=== PATIENT | female | born 1995 | race Caucasian/White ===

== ENCOUNTER → 2017-02-08 | Outpatient (CLI) | payer OTHER ==
--- NOTE | 2017-02-08 12:40 | US ---
EXAMINATION TYPE: US abdomen complete DATE OF EXAM: 02/08/2017 COMPARISON: NONE CLINICAL HISTORY: R10.816 Abd Pain,Epigastric R10.84. RUQ pain, N&V, post 4 months; patient st ated is NPO EXAM MEASUREMENTS: Liver Length: 16.7 cm Gallbladder Wall: contracted CBD: 0.4 cm Spleen: 11.4 cm Right Kidney: 11.8 x 5.2 x 4.0 cm Left Kidney: 11.0 x 5.4 x 4.2 cm Pancreas: wnl Liver: fatty liver and mildly heterogeneous Gallbladder: couple of stones in fundus with larger shadowing stone = 1.0 x 0.6 x 0.4cm in LLD and s upine positions; contracted gallbladder wall in fasting state Evidence for sonographic Underwood's sign: No CBD: wnl Spleen: wnl Right Kidney: wnl Left Kidney: wnl Upper IVC: wnl Abd Aorta: wnl IMPRESSION: 1 mild fatty hepatic infiltration. 2. Gallstones.
== END | disposition home or self-care (01) ==
LOC: RADUSWWP 10:27
PROVIDERS: ATTEND Family Medicine
DX: K76.0 Fatty (change of) liver, not elsewhere classified (principal); K80.20 Calculus of gallbladder without cholecystitis without obstruction
CPT/HCPCS: 76700

== ENCOUNTER 2017-03-02 08:28 | Day surgery (SDC) | payer OTHER ==
[2017-02-24 10:56] VITALS: BMI 25.8
[~2017-03-02 08:28] MED LIST: DEXAMETHASONE SOD PHOSPHATE 10 MG/ML 1 ML VIAL IV ONE; HYDROmorphone 1 MG/ML 1 ML SYRINGE IVP PRN; LACTATED RINGERS 1,000 ML IV SCH; LIDOCAINE 1% 20 ML VIAL (10MG/ML) FOR IV START INTRADERMA PRN; ONDANSETRON 4 MG/2 ML VIAL IVP ONE; SCOPOLAMINE 1.5MG/72HR PATCH TRANSDERM ONE; ceFAZolin 2 GM in SODIUM CHLORIDE 0.9% 100 ML IVPB ONE
[2017-03-02] MEDS ORDERED: LIDOCAINE 1% INJ 10MG/ML (20 ML MDV) ONE (10:31)
[2017-03-02] MEDS ORDERED: GLYCOPYRROLATE 0.2 MG/ML 2 ML VIAL ONE (10:31)
[2017-03-02] MEDS ORDERED: SUCCINYLCHOLINE CHLORIDE 100 MG/5 ML SYR IV ONE (10:31)
[2017-03-02] MEDS ORDERED: PROPOFOL 10 MG/ML 20 ML VIAL IV ONE (10:31)
[2017-03-02] MEDS ORDERED: HYDROmorphone (PF) 1 MG/ML ONE (10:31)
[2017-03-02] MEDS ORDERED: NEOSTIGMINE 1 MG/ML 10 ML VIAL ONE (10:31)
[2017-03-02] MEDS ORDERED: ROCURONIUM BROMIDE 10 MG/ML 10 ML VIAL IV ONE (10:31)
[2017-03-02] MEDS ORDERED: BUPIVACAIN-EPI 0.25%-1:200,000 30 ML VIAL SQ ONE (10:31)
[2017-03-02] MEDS ORDERED: fentaNYL (PF) 50 MCG/ML 2 ML AMP ONE (10:31)
[2017-03-02] MEDS ORDERED: MIDAZOLAM 2 MG/2 ML VIAL ONE (10:31)
[2017-03-02] MEDS ORDERED: LACTATED RINGERS 1,000 ML IV ONE ×2 (11:10→14:08)
[2017-03-02 12:52] VITALS: TEMP 97.9
[2017-03-02 13:44] VITALS: RESP 18
--- NOTE | 2017-03-02 14:01 | P.OP ---
Date of Procedure: 03/02/17 Preoperative Diagnosis: Symptomatic cholelithiasis Postoperative Diagnosis: Acute cholecystitis Procedure(s) Performed: laparoScopic cholecystectomy Implants: Anesthesia: ROMERO Surgeon: Carole Lipscomb Estimated Blood Loss (ml): 25 Pathology: other Condition: stable Disposition: PACU Indications for Procedure: Operative Findings: Inflamed gallbladder Heart tones large impacted with stones Twisted cystic duct that was twisted upon itself by around 270. Description of Procedure: The patient is a 21-year-old female who presented with epigastric and upper abdominal pain which localized in the right upper quadrant was tender with an ultrasound suggested cholelithiasis. Clinical diagnosis of chronic cholecystitis was made. The risks benefits and possible complications of the procedure were discussed in detail and informed consent was obtained. Patient was identified in the preop operating holding area questions were answered and she was taken back to the operating room where she was placed in the supine position. She was given general anesthesia with endotracheal intubation followed by the placement of an orogastric tube and an appropriate timeout was called the indication procedure ALLERGIES medications from her prophylaxis were all discussed. Abdomen is prepped and draped in the usual sterile surgical fashion supraumbilical region was infiltrated with quarter percent with local anesthesia and incision was made with 11 blade and Veress needle was introduced and abdomen was insufflated to 15 mmHg. Once that was done a 10 mm epigastric port and two 5 mm right upper quadrant ports were placed.the gallbladder was retracted cephalad and superiorly.The fundus was retracted. There was significant amount of inflammation the gallbladder itself. Cystic duct and cystic artery as well as the callus trying a were not clear at all. Therefore the left and right lateral peritoneal attachments to the liver were taken down more so on the right lateral side. In doing so brought the gallbladder up a bit longer before dissection in the suspected callus triangle were meticulous dissection was done with the help of blunt dissection sharp dissection and electrocautery first to identify the cystic cystic artery was clipped proximally and distally and transected sharply with the help of electrocautery. Further dissection was done so as to dissect the fundus of the gallbladder off the gallbladder. Exposing the hepatic parenchyma. However there was significant amount of inflammatory adhesions posteriorly as well as twisting of the cystic duct. The cystic duct to the infundibulum transition was difficult to identify due to the severe inflammatory changes. Prolonged meticulous dissection and meticulous technique to obtain a critical view was done so that the infundibulum impacted with stones was untwisted allowing clear visualization of the cystic duct going into the common bile duct. Once that was done then the cystic duct was clipped proximally to distally and transected sharply with the help of scissors. Remaining part of the gallbladder was taken off the liver with Electrocautery. Hemostasis was secured with Electrocautery. The epigastric 12 mm port was removed skin incision was increased with the help of electrocautery as well as scalpel. This was done because the gallbladder wasn't significantly larger in size distended and packed with stones. It was then brought out through the epigastric port site. Once that was done and her PVR was done and all bleeding was controlled hemostasis secured abdomen was thoroughly sucked dry. At this time the procedure was completed the patient was turned off and all ports were removed. The epigastric incision site over that had to be increased both in terms of the muscles of the skin was closed in layers. The muscular layer was closed with running 0 Vicryl. Skin was closed with 4-0 Monocryl. The other port sites closed with 4-0 Monocryl. Approximately 15 mL of local anesthetic was applied into the epigastric port site. This tolerated procedure well there were no complications she was extubated and taken to recovery room in stable condition after removal of the orogastric tube. Plan - Discharge Summary New Discharge Prescriptions: New HYDROcodone/APAP 5-325MG [[place] 5-325] 1 tab PO Q4HR PRN #25 tab PRN Reason: Pain No Action Ciprofloxacin HCl [Cipro] 500 mg PO Q12HR Sertraline [Zoloft] 50 mg PO DAILY HYDROcodone/APAP 5-325MG [[place] 5-325] 1 tab PO Q6HR PRN PRN Reason: Pain Pnv,Calcium 72/Iron/Folic Acid [ Plus Tablet] 1 each PO DAILY Omeprazole 20 mg PO DAILY Discharge Medication List Ciprofloxacin HCl [Cipro] 500 mg PO Q12HR 02/24/17 [History] HYDROcodone/APAP 5-325MG [[place] 5-325] 1 tab PO Q6HR PRN 02/24/17 [History] Omeprazole 20 mg PO DAILY 02/24/17 [History] Pnv,Calcium 72/Iron/Folic Acid [ Plus Tablet] 1 each PO DAILY 02/24/17 [ History] Sertraline [Zoloft] 50 mg PO DAILY 02/24/17 [History] HYDROcodone/APAP 5-325MG [[place] 5-325] 1 tab PO Q4HR PRN #25 tab 03/02/17 [Rx] Follow up Appointment(s)/Referral(s): Carole Lipscomb MD [STAFF PHYSICIAN] - 10 Days Patient Instructions/Handouts: *Surgery [facility] - Laparoscopic Cholecystectomy Discharge Instructions, *Surgery [facility] - (Anesthesia) Discharge Instructions Outpatient Surgery Activity/Diet/Wound Care/Special Instructions: Regular diet Incentive spiromtery. 10 puff /1 h for 1 week Shower in 24 hours Ambulate as tolerated No driving or heavy machinery till pain free off of the pain meds for 48 hours No heavy lifting more than 20 lbs for 3 weeks. Discharge Disposition: HOME SELF-CARE
[2017-03-02 14:58] VITALS: BP 146/66; PULSE 51
== END 2017-03-02 15:16 | disposition home or self-care (01) ==
LOC: OR 08:28
PROVIDERS: ATTEND Surgery
DX: K80.12 Calculus of gallbladder with acute and chronic cholecystitis without obstruction (principal); K21.9 Gastro-esophageal reflux disease without esophagitis; F17.200 Nicotine dependence, unspecified, uncomplicated; Z79.891 Long term (current) use of opiate analgesic; Z79.899 Other long term (current) drug therapy
CPT/HCPCS: 47562; 81025; 88304; J2250; J1100; J2710; J0690; J2405; J2001; J3010; J1170; J0330; J2704

== ENCOUNTER 2017-09-18 17:38 | Emergency (ER) | payer OTHER ==
[2017-09-18 19:15] VITALS: RESP 20
--- NOTE | 2017-09-18 20:14 | ED ---
General Adult HPI - General Chief complaint: Back Pain/Injury Stated complaint: Back pain Time Seen by Provider: 09/18/17 19:44 Source: patient, family, RN notes reviewed Mode of arrival: ambulatory Limitations: no limitations - History of Present Illness Initial comments: 22-year-old female presents to the emergency department with a chief complaint of flareup of her back pain. Suffering from back pain for the last years. She was told that she may have broken her back but she never been to this. She states she continues to have back pain worse when she picked up her daughter. She denies any numbness or tingling down the legs. She denies any loss by bladder function. She denies any saddle anesthesia. She states she did have outpatient x-rays today. She states she's wanted that she can get to help with the pain into she should be following up with. She was unable to get MRI of the back. She states that having any other time. Denies any fever chills with this. Patient denies any recent fever, chills, shortness of breath, chest pain, abdominal pain, nausea vomiting, numbness or tingling, dysuria or hematuria, constipation or diarrhea, headaches or visual changes, or any other current symptoms. - Related Data Home Medications Medication Instructions Recorded Confirmed Escitalopram [Lexapro] 10 mg PO DAILY 09/18/17 09/18/17 hydrOXYzine PAMOATE [Vistaril] 50 mg PO DAILY PRN 09/18/17 09/18/17 Previous Rx's Medication Instructions Recorded Ibuprofen [Motrin] 600 mg PO Q6HR PRN #20 tab 09/18/17 Allergies Allergy/AdvReac Type Severity Reaction Status Date / Time No Known Allergies Allergy Verified 09/18/17 20:06 Review of Systems ROS Statement: Those systems with pertinent positive or pertinent negative responses have been documented in the HPI. ROS Other: All systems not noted in ROS Statement are negative. Past Medical History Past Medical History: GERD/Reflux Additional Past Medical History / Comment(s): CURRENTLY ON ANTIBIOTICS FOR RECENT UTI. GALLBALDDER DISORDER History of Any Multi-Drug Resistant Organisms: None Reported Past Surgical History: Section Past Anesthesia/Blood Transfusion Reactions: No Reported Reaction Past Psychological History: Anxiety, Depression Smoking Status: Current every day smoker Past Alcohol Use History: None Reported Past Drug Use History: None Reported - Past Family History Mother History Unknown: Yes Additional Family Medical History / Comment(s): PT ADOPTED BIOLOGICAL FAMILY HHX UNKNOWN General Exam Limitations: no limitations General appearance: alert, in no apparent distress Respiratory exam: Present: normal lung sounds bilaterally. Absent: respiratory distress, wheezes, rales, rhonchi, stridor Cardiovascular Exam: Present: regular rate, normal rhythm, normal heart sounds. Absent: systolic murmur, diastolic murmur, rubs, gallop, clicks Extremities exam: Present: normal inspection, full ROM, normal capillary refill. Absent: tenderness, pedal edema, joint swelling, calf tenderness Back exam: Present: normal inspection, full ROM. Absent: tenderness, CVA tenderness (R), CVA tenderness (L), paraspinal tenderness, vertebral tenderness , rash noted Neurological exam: Present: alert, oriented X3 Psychiatric exam: Present: normal affect, normal mood Skin exam: Present: warm, dry, intact, normal color. Absent: rash Course Vital Signs 09/18/17 19:12 Temperature 98.3 F Pulse Rate 67 Respiratory 20 Rate Blood Pressure 140/91 O2 Sat by Pulse 99 Oximetry Medical Decision Making - Medical Decision Making 22-year-old female presents emergency 5 chief complaint of back pain. This time patient x-rays are reviewed. This time we discussion follow-up with back specialist. We did give her Dr. Maxwell's information back specialist in [facility] as well as on-call. Dr. Clay. We did discuss Motrin Tylenol for pain. We did discuss return parameters and follow-up and all questions. Patient family stated the Bob management this plan. All questions have been answered. They will be discharged. - Radiology Data Radiology results: report reviewed, image reviewed Disposition Clinical Impression: Chronic back pain Disposition: HOME SELF-CARE Condition: Stable Instructions: Chronic Back Pain (ED) Additional Instructions: Please use medication as discussed. Please follow up with family doctor if symptoms have not improved over the next two days. Please return to the emergency room if your symptoms increase or worsen or for any other concerns. Prescriptions: Ibuprofen [Motrin] 600 mg PO Q6HR PRN #20 tab PRN Reason: Pain Referrals: Jyoti Edge MD [Primary Care Provider] - 1-2 days Time of Disposition: 20:13
[2017-09-18 20:48] VITALS: BP 130/67; PULSE 70; TEMP 98.1
== END 2017-09-18 20:45 | disposition home or self-care (01) ==
LOC: EC 17:38
DX: G89.29 Other chronic pain (principal); M54.9 Dorsalgia, unspecified; F17.200 Nicotine dependence, unspecified, uncomplicated; F32.9 Major depressive disorder, single episode, unspecified; F41.9 Anxiety disorder, unspecified; Z79.899 Other long term (current) drug therapy
CPT/HCPCS: 72100; 81025; 99284

== ENCOUNTER → 2017-09-18 | Outpatient (CLI) | payer OTHER ==
--- NOTE | 2017-09-18 20:02 | XR ---
EXAM TYPE: LUMBAR SPINE X RAY SERIES COMPARISON: NONE HISTORY: Pain TECHNIQUE: 3 views are submitted. FINDINGS: Alignment is anatomic. The pedicles are intact. The transverse processes are intact. There is no spondylolisthesis. Surgical clips in the right upper quadrant are noted. Spina bifida occulta lumbos acral junction. Mild facet arthropathy L5-S1. IMPRESSION: 1. Mild facet arthropathy L5-S1 with spina bifida occulta at the lumbosacral junction. Correlate with MRI as clinically warranted..
== END | disposition home or self-care (01) ==
LOC: RADXRMAIN 17:23
PROVIDERS: ATTEND Nurse Practitioner
DX: M46.87 Other specified inflammatory spondylopathies, lumbosacral region (principal); Q76.0 Spina bifida occulta
CPT/HCPCS: 72100

== ENCOUNTER → 2017-10-04 | Outpatient (CLI) | payer OTHER ==
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
== END ==
LOC: RADMRIMAIN 21:26
PROVIDERS: ATTEND Nurse Practitioner
DX: Q76.0 Spina bifida occulta (principal)
CPT/HCPCS: 72158; A9581

== ENCOUNTER 2025-02-19 15:17 | Inpatient (IN) | payer OTHER ==
--- NOTE | 2025-02-19 16:03 | ED ---
Recheck HPI - General Chief Complaint: Abdominal Pain Stated Complaint: Abd pain/Stomach ulcer Time Seen by Provider: 02/19/25 15:29 Source: patient, EMS, RN notes reviewed, old records reviewed Mode of arrival: EMS - History of Present Illness Initial Comments: This is a 29 female excepted from abdominal pain, ulcer gastric ulcer recent gastritis intraperitoneal free air transfer dose from outside facility Complaint: abnormal lab, needs IV antibiotics, other (Patient needing surgical consultation) -: days(s) Returns Today for: Called Because of Abnormal Lab/Test, needs IV antibiotics, persistent/worsening pain related to initial visit Symptoms Since Prior Visit: worsening pain Context: called for abnormal lab result Associated Symptoms: none, abdominal pain Treatments Prior to Arrival: IV/IO, Given Antibiotics on, Given Pain Meds on - Related Data Home Medications Medication Instructions Recorded Confirmed Amitriptyline HCl [Elavil] 50 mg PO HS 02/19/25 02/19/25 Cetirizine HCl 10 mg PO DAILY 02/19/25 02/19/25 Dextroamphetamine/Amphetamine 15 mg PO DAILY 02/19/25 02/19/25 [Adderall Xr 15 mg Capsule] Meloxicam [Mobic] 15 mg PO DAILY 02/19/25 02/19/25 Metoclopramide [Reglan] 10 mg PO TID-W/MEALS PRN 02/19/25 02/19/25 Ondansetron Odt [Zofran Odt] 4 mg PO Q8HR PRN 02/19/25 02/19/25 Pantoprazole Sodium [Protonix] 20 mg PO DAILY 02/19/25 02/19/25 hydrOXYzine HCL [Atarax] 25 mg PO BID PRN 02/19/25 02/19/25 Previous Rx's Medication Instructions Recorded Ibuprofen [Motrin] 600 mg PO Q6HR PRN #20 tab 09/18/17 Allergies Allergy/AdvReac Type Severity Reaction Status Date / Time No Known Allergies Allergy Verified 02/19/25 16:03 Review of Systems ROS Statement: Those systems with pertinent positive or pertinent negative responses have been documented in the HPI. ROS Other: All systems not noted in ROS Statement are negative. Past Medical History Past Medical History: GERD/Reflux Additional Past Medical History / Comment(s): chronic back pain and "period issues" History of Any Multi-Drug Resistant Organisms: None Reported Past Surgical History: Section, Cholecystectomy Past Anesthesia/Blood Transfusion Reactions: No Reported Reaction Past Psychological History: Anxiety, Depression Smoking Status: Vaper Past Alcohol Use History: Rare Past Drug Use History: Marijuana - Past Family History Mother History Unknown: Yes Additional Family Medical History / Comment(s): PT ADOPTED BIOLOGICAL FAMILY HHX UNKNOWN General Exam General appearance: alert, in no apparent distress Head exam: Present: atraumatic, normocephalic, normal inspection Eye exam: Present: normal appearance, PERRL, EOMI. Absent: scleral icterus, conjunctival injection, periorbital swelling ENT exam: Present: normal exam, mucous membranes moist Neck exam: Present: normal inspection. Absent: tenderness, meningismus, lymphadenopathy Respiratory exam: Present: normal lung sounds bilaterally. Absent: respiratory distress, wheezes, rales, rhonchi, stridor Cardiovascular Exam: Present: regular rate, normal rhythm, normal heart sounds. Absent: systolic murmur, diastolic murmur, rubs, gallop, clicks GI/Abdominal exam: Present: soft, normal bowel sounds. Absent: distended, tenderness, guarding, rebound, rigid Extremities exam: Present: normal inspection, full ROM, normal capillary refill. Absent: tenderness, pedal edema, joint swelling, calf tenderness Back exam: Present: normal inspection Neurological exam: Present: alert, oriented X3, CN II-XII intact Psychiatric exam: Present: normal affect, normal mood Skin exam: Present: warm, dry, intact, normal color. Absent: rash Course Vital Signs 02/19/25 02/19/25 02/19/25 15:22 16:37 16:43 Temperature 97.8 F 96.5 F L Pulse Rate 76 68 Pulse Rate [ 78 Pulse Oximetery ] Respiratory 16 16 16 Rate Blood Pressure 117/65 109/68 Blood Pressure 110/64 [Left Arm] O2 Sat by Pulse 100 99 99 Oximetry - Reevaluation(s) Reevaluation #1: 02/19/25 16:05 Medical records reviewed Transfer paperwork CT abdomen pelvis is gastritis with interval development of large volume free air in the abdomen and pelvis suspected perforated hollow viscus concern for perforated ulcer CMP is within normal limits CBC hemoglobin 13.7 white blood cell count 13.8 Reevaluation #2: No significant or active bleeding noted here in the ER Reevaluation #3: Patient vital signs are stable no lowering of blood pressure no increasing of heart rate pain is controlled Reevaluation #4: Was pt. sent in by a medical professional or institution (AYANA Ibrahim, [employer] 8 TEACHER, urgent care, hospital, or [facility]...) When possible be specific @ -no Did you speak to anyone other than the patient for history (EMS, parent, family, police, friend...)? What history was obtained from this source @ -no Did you review nursing and triage notes (agree or disagree)? Why? @ -agree Are old charts reviewed (outside hosp., previous admission, EMS record, old EKG, old radiological studies, urgent care reports/EKG's, [facility] records)? Report findings @ -yes Differential Diagnosis (chest pain, altered mental status, abdominal pain women, abdominal pain men, vaginal bleeding, weakness, fever, dyspnea, syncope, headache, dizziness, GI bleed, back pain, seizure, CVA, palpatations, mental health, musculoskeletal)? @ -prior EKG interpreted by me (3pts min.). @ -no X-rays interpreted by me (1pt min.). @ -no CT interpreted by me (1pt min.). @ -no U/S interpreted by me (1pt. min.). @ -no What testing was considered but not performed or refused? (CT, X-rays, U/S, labs)? Why? @ -none What meds were considered but not given or refused? Why? @ -none Did you discuss the management of the patient with other professionals (professionals i.e. AYANA Ibrahim, [employer] TEACHER, lab, RT, psych nurse, social media director, clutch inspector, teacher, commercial account officer, geriatric case manager)? Give summary @ -no Was smoking cessation discussed for >3mins.? @ -no Was critical care preformed (if so, how long)? @ -yes31 Were there social determinants of health that impacted care today? How? (Homelessness, low income, unemployed, alcoholism, drug addiction, transp ortation, low edu. Level, literacy, decrease access to med. care, [facility], rehab)? @ -none Was there de-escalation of care discussed even if they declined (Discuss DNR or withdrawal of care, Hospice)? DNR status @ -no What co-morbidities impacted this encounter? (DM, HTN, Smoking, COPD, CAD, Cancer, CVA, ARF, Chemo, Hep., AIDS, mental health diagnosis, sleep apnea, morbid obesity)? @ -none Was patient admitted / discharged? Hospital course, mention meds given and route, prescriptions, significant lab abnormalities, going to OR and other pertinent info. @ -29 female transferred for ulcer rupture with significant bleeding, patient will be admitted for surgical treatment Undiagnosed new problem with uncertain prognosis? @ -no Drug Therapy requiring intensive monitoring for toxicity (Heparin, Nitro, Insulin, Cardizem)? @ -no Were any procedures done? @ -no Diagnosis/symptom? @ -Ruptured ulcer gastritis intraperitoneal free air Acute, or Chronic, or Acute on Chronic? @ -Acute Uncomplicated (without systemic symptoms) or Complicated (systemic symptoms)? @ -Complicated Side effects of treatment? @ -no Exacerbation, Progression, or Severe Exacerbation? @ -exacerbation Poses a threat to life or bodily function? How? (Chest pain, [place], [place], pneumonia, PE, COPD, DKA, ARF, appy, cholecystitis, CVA, Diverticulitis, Homicidal, Suicidal, threat to staff... and all critical care pts) @ -yes acute abdomen Reevaluation #5: Differential Abdominal Pain Women: Appendicitis, Cholecystitis, diverticulosis, ischemic bowel, pancreatitis, hepatitis, UTI, gastroenteritis, AAA, incarcerated hernia, bowel obstruction, constipation, inflammatory bowel, hepatitis, peptic ulcer disease, splenic infarction, perforated viscus, vulvitis, ovarian torsion, PID, kidney stone, placenta abruption, this is not meant to be an all-inclusive list Medical Decision Making - Medical Decision Making 29 female to ER with bleeding ulcer, patient will be admitted for surgical treatment - Lab Data Result diagrams: 02/23/25 03:07 02/23/25 03:07 Lab Results 02/19/25 02/19/25 02/19/25 Range/Units 16:25 16:25 16:25 WBC 14.01 H (4.50-10.00) 10*3/uL RBC 4.65 (4.10-5.20) 10*6/uL Hgb 13.7 (12.0-15.0) g/dL Hct 38.6 (37.2-46.3) % MCV 83.0 (80.0-97.0) fL MCH 29.5 (27.0-32.0) pg MCHC 35.5 (32.0-37.0) g/dL Plt Count 262 (140-440) 10*3/uL MPV 9.6 (9.5-12.2) fL Immature Gran % (Auto) 0.2 % Neutrophils % (Manual) 80 % Band Neuts % (Manual) 8 % Lymphocytes % (Manual) 6 % Monocytes % (Manual) 6 % Immature Gran # 0.03 (0.00-0.04) 10*3/uL Neutrophils # (Manual) 12.32 H (1.3-7.7) k/uL Lymphocytes # (Manual) 0.84 L (1.0-4.8) k/uL Monocytes # (Manual) 0.84 (0-1.0) k/uL Nucleated RBCs 0 (0-0) /100 WBC Manual Slide Review Performed Anisocytosis (manual) Present PT 17.4 H (10.0-12.5) sec INR 1.7 H (<1.2) APTT 27.2 (22.0-30.0) sec Sodium 141 (137-145) mmol/L Potassium 3.3 L (3.5-5.1) mmol/L Chloride 103 (98-107) mmol/L Carbon Dioxide 25 (22-30) mmol/L Anion Gap 13 mmol/L BUN 11 (7-17) mg/dL Creatinine 0.44 L (0.52-1.04) mg/dL Est GFR (CKD-EPI)AfAm >90 (>60 ml/min/1.73 sqM) Est GFR (CKD-EPI)NonAf >90 (>60 ml/min/1.73 sqM) Glucose 115 H (74-99) mg/dL Plasma Lactic Acid Hung (0.7-2.0) mmol/L Calcium 8.9 (8.4-10.2) mg/dL Magnesium 1.3 L (1.6-2.3) mg/dL Total Bilirubin 2.5 H (0.2-1.3) mg/dL AST 53 H (14-36) U/L ALT 79 H (4-34) U/L Alkaline Phosphatase 73 (38-126) U/L Ammonia (<30) umol/L Troponin I (0.000-0.034) ng/mL Total Protein 6.8 (6.3-8.2) g/dL Albumin 3.9 (3.5-5.0) g/dL Lipase 62 (23-300) U/L HCG, Qual Not Detected Blood Type Blood Type Confirm Blood Type Recheck Bld Type Recheck Status Antibody Screen Spec Expiration Date 02/19/25 02/19/25 02/19/25 Range/Units 16:25 16:25 16:25 WBC (4.50-10.00) 10*3/uL RBC (4.10-5.20) 10*6/uL Hgb (12.0-15.0) g/dL Hct (37.2-46.3) % MCV (80.0-97.0) fL MCH (27.0-32.0) pg MCHC (32.0-37.0) g/dL Plt Count (140-440) 10*3/uL MPV (9.5-12.2) fL Immature Gran % (Auto) % Neutrophils % (Manual) % Band Neuts % (Manual) % Lymphocytes % (Manual) % Monocytes % (Manual) % Immature Gran # (0.00-0.04) 10*3/uL Neutrophils # (Manual) (1.3-7.7) k/uL Lymphocytes # (Manual) (1.0-4.8) k/uL Monocytes # (Manual) (0-1.0) k/uL Nucleated RBCs (0-0) /100 WBC Manual Slide Review Anisocytosis (manual) PT (10.0-12.5) sec INR (<1.2) APTT (22.0-30.0) sec Sodium (137-145) mmol/L Potassium (3.5-5.1) mmol/L Chloride (98-107) mmol/L Carbon Dioxide (22-30) mmol/L Anion Gap mmol/L BUN (7-17) mg/dL Creatinine (0.52-1.04) mg/dL Est GFR (CKD-EPI)AfAm (>60 ml/min/1.73 sqM) Est GFR (CKD-EPI)NonAf (>60 ml/min/1.73 sqM) Glucose (74-99) mg/dL Plasma Lactic Acid Hung 1.9 (0.7-2.0) mmol/L Calcium (8.4-10.2) mg/dL Magnesium (1.6-2.3) mg/dL Total Bilirubin (0.2-1.3) mg/dL AST (14-36) U/L ALT (4-34) U/L Alkaline Phosphatase (38-126) U/L Ammonia 9 (<30) umol/L Troponin I <0.012 (0.000-0.034) ng/mL Total Protein (6.3-8.2) g/dL Albumin (3.5-5.0) g/dL Lipase (23-300) U/L HCG, Qual Blood Type O Positive Blood Type Confirm Blood Type Recheck No Previous Record Bld Type Recheck Status CABO Indicated Antibody Screen NEGATIVE Spec Expiration Date 02/22/2025 - 232402/19/25 Range/Units 16:30 WBC (4.50-10.00) 10*3/uL RBC (4.10-5.20) 10*6/uL Hgb (12.0-15.0) g/dL Hct (37.2-46.3) % MCV (80.0-97.0) fL MCH (27.0-32.0) pg MCHC (32.0-37.0) g/dL Plt Count (140-440) 10*3/uL MPV (9.5-12.2) fL Immature Gran % (Auto) % Neutrophils % (Manual) % Band Neuts % (Manual) % Lymphocytes % (Manual) % Monocytes % (Manual) % Immature Gran # (0.00-0.04) 10*3/uL Neutrophils # (Manual) (1.3-7.7) k/uL Lymphocytes # (Manual) (1.0-4.8) k/uL Monocytes # (Manual) (0-1.0) k/uL Nucleated RBCs (0-0) /100 WBC Manual Slide Review Anisocytosis (manual) PT (10.0-12.5) sec INR (<1.2) APTT (22.0-30.0) sec Sodium (137-145) mmol/L Potassium (3.5-5.1) mmol/L Chloride (98-107) mmol/L Carbon Dioxide (22-30) mmol/L Anion Gap mmol/L BUN (7-17) mg/dL Creatinine (0.52-1.04) mg/dL Est GFR (CKD-EPI)AfAm (>60 ml/min/1.73 sqM) Est GFR (CKD-EPI)NonAf (>60 ml/min/1.73 sqM) Glucose (74-99) mg/dL Plasma Lactic Acid Hung (0.7-2.0) mmol/L Calcium (8.4-10.2) mg/dL Magnesium (1.6-2.3) mg/dL Total Bilirubin (0.2-1.3) mg/dL AST (14-36) U/L ALT (4-34) U/L Alkaline Phosphatase (38-126) U/L Ammonia (<30) umol/L Troponin I (0.000-0.034) ng/mL Total Protein (6.3-8.2) g/dL Albumin (3.5-5.0) g/dL Lipase (23-300) U/L HCG, Qual Blood Type Blood Type Confirm O Positive Blood Type Recheck Bld Type Recheck Status Antibody Screen Spec Expiration Date Critical Care Time Critical Care Time: Yes Total Critical Care Time: 31 Disposition Clinical Impression: Abdominal pain, Acute abdomen, Bowel perforation, Gastritis, Ulcer Disposition: ADMITTED IP TO THIS [facility] Condition: Serious Is patient prescribed a controlled substance at d/c from ED?: No Time of Disposition: 16:30
[2025-02-19] MEDS: SODIUM CHLORIDE 0.9% 1,000 ML IV STA (16:19)
[2025-02-19] MEDS: HYDROmorphone 1 MG/ML 1 ML SYRINGE IVP STA (16:27)
[2025-02-19] MEDS: PANTOPRAZOLE 40 MG/10 ML VIAL IVP STA (16:29)
[2025-02-19] MEDS: ONDANSETRON 4 MG/2 ML VIAL IVP STA (16:30)
[2025-02-19] MEDS: PIPERACILLIN-TAZOBACTAM 3.375 GM in SODIUM CHLORIDE 0.9% 100 ML IVPB SCH (16:34)
[2025-02-19] MEDS ORDERED: NALOXONE 0.4 MG/ML 1 ML VIAL IV PRN (16:46)
[2025-02-19] MEDS ORDERED: ONDANSETRON 4 MG/2 ML VIAL IVP PRN (16:46)
[2025-02-19 16:49] LABS: HCG,Qualitative Serum Not Detected
[2025-02-19 16:51] LABS: Lactic Acid, Venous 1.9 mmol/L (0.7-2.0)
[2025-02-19 16:52] LABS: ALT 79 U/L (4-34); AST 53 U/L (14-36); African American GFR (CKD) >90 (>60 ml/min/1.73 sqM); Albumin 3.9 g/dL (3.5-5.0); Alkaline Phosphatase 73 U/L (38-126); Anion Gap 13 mmol/L; Blood Urea Nitrogen 11 mg/dL (7-17); Calcium 8.9 mg/dL (8.4-10.2); Carbon Dioxide 25 mmol/L (22-30); Chloride 103 mmol/L (98-107); Glucose 115 mg/dL (74-99); Lipase 62 U/L (23-300); Magnesium 1.3 mg/dL (1.6-2.3); Non-African American GFR(CKD) >90 (>60 ml/min/1.73 sqM); Potassium 3.3 mmol/L (3.5-5.1); Sodium 141 mmol/L (137-145); Total Protein 6.8 g/dL (6.3-8.2)
[2025-02-19] MEDS: IV FLUID CONTINUATION 1,000 ML IV ONE (16:52)
[2025-02-19 16:54] LABS: HCT 38.6 % (37.2-46.3); HGB 13.7 g/dL (12.0-15.0); MCH 29.5 pg (27.0-32.0); MCHC 35.5 g/dL (32.0-37.0); MCV 83.0 fL (80.0-97.0); Platelet Count 262 10*3/uL (140-440); RBC 4.65 10*6/uL (4.10-5.20); RDW 12.6 % (11.5-14.5); WBC 14.01 10*3/uL (4.50-10.00)
[2025-02-19] MEDS: HEPARIN SODIUM,PORCINE 5,000 UNIT/ML 1 ML VIAL SQ ONE (16:59)
[2025-02-19] MEDS: DEXAMETHASONE SOD PHOSPHATE 4 MG/ML 1 ML VIAL IVP ONE (16:59)
[2025-02-19 17:00] LABS: INR 1.7 (<1.2); Partial Thromboplastin Time 27.2 sec (22.0-30.0); Prothrombin Time 17.4 sec (10.0-12.5)
[2025-02-19] MEDS ORDERED: MIDAZOLAM 2 MG/2 ML VIAL ONE (17:00)
[2025-02-19] MEDS ORDERED: PHENYLEPHRINE-0.9% NACL SYG 1,000 MCG/10 ML SYRINGE ONE (17:00)
[2025-02-19] MEDS ORDERED: SUCCINYLCHOLINE CHLORIDE 200 MG/10 ML VIAL IV ONE (17:00)
[2025-02-19] MEDS ORDERED: NEOSTIGMINE 1 MG/ML 10 ML VIAL ONE (17:00)
[2025-02-19] MEDS ORDERED: GLYCOPYRROLATE 0.2 MG/ML 2 ML VIAL ONE (17:00)
[2025-02-19] MEDS ORDERED: ROCURONIUM 10 MG/ML (5 ML VIAL) IV ONE (17:00)
[2025-02-19] MEDS ORDERED: KETAMINE HCL IN 0.9 % NACL 50 MG/5 ML SYRINGE ONE (17:00)
[2025-02-19] MEDS ORDERED: fentaNYL (PF) 50 MCG/ML 2 ML AMP ONE (17:00)
[2025-02-19] MEDS ORDERED: DEXMEDETOMIDINE/0.9% NACL(PMX) 400 MCG/100 ML IV ONE (17:00)
[2025-02-19] MEDS ORDERED: PROPOFOL 10 MG/ML 20 ML VIAL IV ONE (17:00)
--- NOTE | 2025-02-19 17:08 | P.GSHP ---
History of Present Illness H&P Date: 02/19/25 Chief Complaint: Pneumoperitoneum 29-year-old female has had intermittent epigastric abdominal pain for the last few years. Usually last for a day or so. Starting last Monday into began experiencing upper abdominal pain that did not go away this time. Became progressively more severe. Went to the ER on Monday. Limited workup did not reveal any abnormalities. She was sent home with analgesics and antiemetics. Went back to the ER on Monday. CAT scan was then performed showing some thickening of the gastric wall. Gastritis was suspected. Patient was having some dark-colored stools at the time. Denied hematemesis. Did have some vomiting. Again was discharged home. Patient says since then the pain became progressively more severe to the point that she could not sleep. Patient was weak today. She was taken back to the hospital underwent repeat lab work and CAT scan showing large volume pneumoperitoneum. Some possible fistulous communication to the gastric antrum was suspected. Was transferred here for surgical intervention. Was seen here in preop this afternoon. Patient is able to ambulate with mild distress. Denies shortness of breath. Does feel weak. White blood cell count 13, hemoglobin 13, lactic acid normal. Urine hCG negative. No history of previous EGD. Patient does take meloxicam for her perimenopausal symptoms. - Review of Systems Comment: The patient denies any acute changes in vision or hearing, no dysphagia or odynophagia, no chest pain or shortness of breath, no dysuria or hematuria, no headache, no runny nose, no rectal bleeding, no unexplained weight loss Past Medical History Past Medical History: GERD/Reflux Additional Past Medical History / Comment(s): chronic back pain and "period issues" History of Any Multi-Drug Resistant Organisms: None Reported Past Surgical History: Section, Cholecystectomy Past Anesthesia/Blood Transfusion Reactions: No Reported Reaction Past Psychological History: Anxiety, Depression Smoking Status: Vaper Past Alcohol Use History: Rare Past Drug Use History: Marijuana - Past Family History Mother History Unknown: Yes Additional Family Medical History / Comment(s): PT ADOPTED BIOLOGICAL FAMILY HHX UNKNOWN Medications and Allergies Home Medications Medication Instructions Recorded Confirmed Type Ibuprofen [Motrin] 600 mg PO Q6HR PRN #20 tab 09/18/17 02/19/25 Rx Amitriptyline HCl [Elavil] 50 mg PO HS 02/19/25 02/19/25 History Cetirizine HCl 10 mg PO DAILY 02/19/25 02/19/25 History Dextroamphetamine/Amphetamine 15 mg PO DAILY 02/19/25 02/19/25 History [Adderall Xr 15 mg Capsule] Meloxicam [Mobic] 15 mg PO DAILY 02/19/25 02/19/25 History Metoclopramide [Reglan] 10 mg PO TID-W/MEALS PRN 02/19/25 02/19/25 History Ondansetron Odt [Zofran Odt] 4 mg PO Q8HR PRN 02/19/25 02/19/25 History Pantoprazole Sodium [Protonix] 20 mg PO DAILY 02/19/25 02/19/25 History hydrOXYzine HCL [Atarax] 25 mg PO BID PRN 02/19/25 02/19/25 History Allergies Allergy/AdvReac Type Severity Reaction Status Date / Time No Known Allergies Allergy Verified 02/19/25 16:03 Surgical - Exam Vital Signs Temp Pulse Resp BP Pulse Ox 97.8 F 76 16 117/65 100 02/19/25 15:22 02/19/25 15:22 02/19/25 15:22 02/19/25 15:22 02/19/25 15:22 Physical exam: General: Well-developed, well-nourished, appears slightly pale HEENT: Normocephalic, sclerae nonicteric Abdomen: Diffuse tenderness, mild distention Extremities: No edema Neuro: Alert and oriented Results - Labs 02/19/25 16:25 02/19/25 16:25 Abnormal Lab Results - Last 24 Hours (Table) 02/19/25 02/19/25 02/19/25 Range/Units 16:25 16:25 16:25 WBC 14.01 H (4.50-10.00) 10*3/uL PT 17.4 H (10.0-12.5) sec INR 1.7 H (<1.2) Potassium 3.3 L (3.5-5.1) mmol/L Creatinine 0.44 L (0.52-1.04) mg/dL Glucose 115 H (74-99) mg/dL Magnesium 1.3 L (1.6-2.3) mg/dL Total Bilirubin 2.5 H (0.2-1.3) mg/dL AST 53 H (14-36) U/L ALT 79 H (4-34) U/L Diabetes panel 02/19/25 Range/Units 16:25 Sodium 141 (137-145) mmol/L Potassium 3.3 L (3.5-5.1) mmol/L Chloride 103 (98-107) mmol/L Carbon Dioxide 25 (22-30) mmol/L BUN 11 (7-17) mg/dL Creatinine 0.44 L (0.52-1.04) mg/dL Glucose 115 H (74-99) mg/dL Calcium 8.9 (8.4-10.2) mg/dL AST 53 H (14-36) U/L ALT 79 H (4-34) U/L Alkaline Phosphatase 73 (38-126) U/L Total Protein 6.8 (6.3-8.2) g/dL Albumin 3.9 (3.5-5.0) g/dL Calcium panel 02/19/25 Range/Units 16:25 Calcium 8.9 (8.4-10.2) mg/dL Albumin 3.9 (3.5-5.0) g/dL Pituitary panel 02/19/25 Range/Units 16:25 Sodium 141 (137-145) mmol/L Potassium 3.3 L (3.5-5.1) mmol/L Chloride 103 (98-107) mmol/L Carbon Dioxide 25 (22-30) mmol/L BUN 11 (7-17) mg/dL Creatinine 0.44 L (0.52-1.04) mg/dL Glucose 115 H (74-99) mg/dL Calcium 8.9 (8.4-10.2) mg/dL Adrenal panel 02/19/25 Range/Units 16:25 Sodium 141 (137-145) mmol/L Potassium 3.3 L (3.5-5.1) mmol/L Chloride 103 (98-107) mmol/L Carbon Dioxide 25 (22-30) mmol/L BUN 11 (7-17) mg/dL Creatinine 0.44 L (0.52-1.04) mg/dL Glucose 115 H (74-99) mg/dL Calcium 8.9 (8.4-10.2) mg/dL Total Bilirubin 2.5 H (0.2-1.3) mg/dL AST 53 H (14-36) U/L ALT 79 H (4-34) U/L Alkaline Phosphatase 73 (38-126) U/L Total Protein 6.8 (6.3-8.2) g/dL Albumin 3.9 (3.5-5.0) g/dL Assessment and Plan (1) Bowel perforation Narrative/Plan: 29-year-old female with pneumoperitoneum. CAT scan reviewed. Source of perforation likely related to peptic ulcer disease. Clinical scenario reviewed in detail with the patient and her fianc. Patient is agreeable with surgical intervention. Will proceed with exploratory laparotomy, possible bowel resecti on, possible ostomy. Risks of bleeding, infection, abscess, reperforation, possible need for bowel resection, gastric resection, ostomy, hernia, sepsis. Patient understands and wishes to proceed. Current Visit: Yes Status: Acute Code(s): K63.1 - PERFORATION OF INTESTINE (NONTRAUMATIC) SNOMED Code(s): 02429391
[2025-02-19 17:24] LABS: Lymphocytes # (M) 0.84 k/uL (1.0-4.8); Monocytes # (M) 0.84 k/uL (0-1.0); Neutrophils # (M) 12.32 k/uL (1.3-7.7); Neutrophils % (M) 80 %; Total Cells Counted 100
[2025-02-19 17:26] LABS: Anisocytosis (M) Present
[2025-02-19] MEDS: LACTATED RINGERS 1,000 ML IV ONE (17:53)
--- NOTE | 2025-02-19 18:44 | P.OP ---
Date of Procedure: 02/19/25 Procedure(s) Performed: PREOPERATIVE DIAGNOSIS: Pneumoperitoneum POSTOPERATIVE DIAGNOSIS: Perforated gastric ulcer with peritonitis PROCEDURE: Exploratory laparotomy, suture repair perforated gastric ulcer with modified Bradley patch SURGEON: Alonzo EBL: 25 cc ANESTHESIA: General COMPLICATIONS: None OPERATIVE PROCEDURE: Patient placed in the operating table in the supine position. Preoperative nasogastric tube placed. Abdomen prepped and draped sterilely. Midline incision made supraumbilical. Initially the incision was small. Once I entered the abdominal cavity a large volume of bilious purulent fluid was encountered. Incision was then lengthened superiorly. I was able to visualize a oval-shaped perforation of the antrum in the anterior superior position. This measured 6 x 5 mm. The immediate surrounding tissues were thin. This was closed transversely using interrupted 3-0 GI silk sutures. This closed this area nicely. I then had enough mobility of the stomach wall to imbricate the wall of the stomach around this using interrupted 3-0 GI silk sutures as well. A portion of the omentum was then sutured over the perforation site using 3-0 GI silk sutures. Thorough irrigation of the peritoneal cavity then took place using 5 L of fluid. The midline fascia was then reapproximated using 2 double-stranded PDS sutures. Subcutaneous layer closed using 3-0 Vicryl sutures. Skin loosely reapproximated with mary ann. Sterile dressing applied. DISPOSITION: Stable to recovery room
[2025-02-19] MEDS ORDERED: DEXTROSE 5%-0.45% NACL 1,000 ML with POTASSIUM CHLORIDE 20 MEQ IV SCH (18:45)
[2025-02-19] MEDS: HYDROmorphone 0.5 MG/0.5 ML SYRINGE IVP PRN (19:28)
[2025-02-19] MEDS: PANTOPRAZOLE 40 MG/10 ML VIAL IV SCH (20:21)
[2025-02-19] MEDS: DEXTROSE 5%-0.45% NACL 1,000 ML IV SCH (20:48)
[2025-02-19] MEDS: D5-0.45% NACL WITH KCL 20MEQ/L 1,000 ML IV SCH (21:47)
[2025-02-19] MEDS: HEPARIN SODIUM,PORCINE 5,000 UNIT/ML 1 ML VIAL SQ SCH (23:58)
[2025-02-20] MEDS: ONDANSETRON 4 MG/2 ML VIAL IVP PRN (00:32)
[2025-02-20] MEDS: BENZOCAINE SPRAY 1 EACH MUCOUS MEM PRN (08:06)
[2025-02-20 08:29] LABS: ALT 57 U/L (8-44); AST 30 U/L (13-35); Albumin 3.0 g/dL (3.8-4.9); Albumin/Globulin Ratio 1.43 Ratio (1.60-3.17); Alkaline Phosphatase 74 U/L (41-126); Anion Gap 10.50 mmol/L (4.00-12.00); BUN/Creat Ratio 29.20 Ratio (12.00-20.00); Blood Urea Nitrogen 14.6 mg/dL (9.0-27.0); Calcium 8.1 mg/dL (8.7-10.3); Carbon Dioxide 23.5 mmol/L (21.6-31.8); Chloride 107 mmol/L (96-109); Globulin 2.1 g/dL (1.6-3.3); Glucose 96 mg/dL (70-110); Magnesium 1.5 mg/dL (1.5-2.4); Potassium 3.4 mmol/L (3.5-5.5); Sodium 141 mmol/L (135-145); Total Protein 5.1 g/dL (6.2-8.2)
--- NOTE | 2025-02-20 09:46 | P.CRDCN ---
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 She does have a past medical history of ADHD, depression, tobacco use, marijuana use. Patient is adopted and biological family history is not known. We have been asked to evaluate the patient for abnormal telemetry. Apparently staff received a call during the night about abnormal telemetry. Patient has been asymptomatic at this time but she does give history that she has had episodes where her heart races. She states its come and gone for many years. She sometimes gets dizzy with it. She has not had any treatment for it or sought treatment and has been told that it was related to Adderall. Patient denies chest pain, no shortness of breath. She came into the hospital due to abdominal pain and found to have pneumoperitoneum perforated gastric ulcer with peritonitis and is status post exploratory laparotomy. Her abdominal pain is improved but NG tube is causing her significant discomfort. -EKG: Sinus rhythm with no acute ST-T wave changes. Telemetry reviewed and patient found to have delta waves intermittently. -Laboratory studies: WBC 14, hemoglobin 13.7, potassium 3.4, creatinine 0.5. Magnesium 1.5. Troponin negative x 1. -Home cardiac medications: None Review Of Systems: At the time of my exam: CONSTITUTIONAL: Denies fever or chills. HEENT: Denies blurred vision, vision changes, or eye pain. Denies hemoptysis CARDIOVASCULAR: Denies chest pain. Denies orthopnea. Denies PND. Denies palpitations RESPIRATORY: Denies shortness of breath. GASTROINTESTINAL: Abdominal discomfort. Denies nausea or vomiting. HEMATOLOGIC: Denies bleeding disorders. GENITOURINARY: Denies any blood in urine. SKIN: Denies puritis. Denies rash. Physical examination: Gen: This is a 29-year-old female in no acute distress. VS: reviewed HEENT: Head is atraumatic, normocephalic. Pupils equal, round. Sclerae is anicteric. NECK: Supple. No JVD. LUNGS: Clear to auscultation. No wheezes or rhonchi. No intercostal retractions. HEART: Regular rate and rhythm. No murmur. ABDOMEN: Soft No tenderness. EXTREMITIES: No pedal edema. No calf tenderness. NEUROLOGICAL: Patient is awake, alert and oriented x3. Assessment: Delta waves found on telemetry Pneumoperitoneum secondary to perforated gastric ulcer with peritonitis status post exploratory laparotomy History of ADHD Depression Tobacco use Marijuana use Plan: No further workup from cardiology at this time. Reviewed EKG, telemetry and due to findings of delta waves on telemetry and also history of patient reported palpitations, dizziness, patient will follow-up with Dr. Monson in 4 weeks for possible WPW workup. Thank you kindly for this consultation. Nurse practitioner note has been reviewed, I agree with documented findings and plan of care. Patient was seen and examined. Past Medical History Past Medical History: GERD/Reflux Additional Past Medical History / Comment(s): chronic back pain and "period issues" History of Any Multi-Drug Resistant Organisms: None Reported Past Surgical History: Section, Cholecystectomy Past Anesthesia/Blood Transfusion Reactions: No Reported Reaction Past Psychological History: Anxiety, Depression Smoking Status: Vaper Past Alcohol Use History: Rare Additional Past Alcohol Use History / Comment(s): SMOKES < 1/2 PPD SINCE 2010 Past Drug Use History: Marijuana - Past Family History Mother History Unknown: Yes Additional Family Medical History / Comment(s): PT ADOPTED BIOLOGICAL FAMILY HHX UNKNOWN Medications and Allergies Home Medications Medication Instructions Recorded Confirmed Type Ibuprofen [Motrin] 600 mg PO Q6HR PRN #20 tab 09/18/17 02/19/25 Rx Amitriptyline HCl [Elavil] 50 mg PO HS 02/19/25 02/19/25 History Cetirizine HCl 10 mg PO DAILY 02/19/25 02/19/25 History Dextroamphetamine/Amphetamine 15 mg PO DAILY 02/19/25 02/19/25 History [Adderall Xr 15 mg Capsule] Meloxicam [Mobic] 15 mg PO DAILY 02/19/25 02/19/25 History Metoclopramide [Reglan] 10 mg PO TID-W/MEALS PRN 02/19/25 02/19/25 History Ondansetron Odt [Zofran Odt] 4 mg PO Q8HR PRN 02/19/25 02/19/25 History Pantoprazole Sodium [Protonix] 20 mg PO DAILY 02/19/25 02/19/25 History hydrOXYzine HCL [Atarax] 25 mg PO BID PRN 02/19/25 02/19/25 History Allergies Allergy/AdvReac Type Severity Reaction Status Date / Time No Known Allergies Allergy Verified 02/19/25 16:03 Physical Exam Vitals: Vital Signs Temp Pulse Pulse Pulse Pulse Resp BP 02/20/25 07:20 98.7 F 59 L 17 02/20/25 01:44 98.5 F 98 18 02/19/25 21:45 69 02/19/25 21:30 87 02/19/25 21:15 83 02/19/25 21:00 68 02/19/25 20:45 74 02/19/25 20:30 77 02/19/25 20:15 75 02/19/25 19:42 61 14 02/19/25 19:30 77 14 02/19/25 19:15 70 14 02/19/25 19:00 73 14 02/19/25 18:45 88 14 02/19/25 18:30 74 12 02/19/25 18:25 97.0 F L 93 14 02/19/25 16:43 96.5 F L 78 16 02/19/25 16:37 68 16 109/68 02/19/25 15:22 97.8 F 76 16 117/65 BP Pulse Ox 02/20/25 07:20 101/63 98 02/20/25 01:44 128/90 100 02/19/25 21:45 102/68 97 02/19/25 21:30 106/70 99 02/19/25 21:15 109/74 98 02/19/25 21:00 98/62 98 02/19/25 20:45 104/70 98 02/19/25 20:30 101/68 98 02/19/25 20:15 108/69 98 02/19/25 19:42 104/63 98 02/19/25 19:30 107/66 97 02/19/25 19:15 108/67 99 02/19/25 19:00 109/69 98 02/19/25 18:45 108/67 98 02/19/25 18:30 129/86 97 02/19/25 18:25 109/69 100 02/19/25 16:43 110/64 99 02/19/25 16:37 99 02/19/25 15:22 100 Intake and Output 02/19/25 02/20/2525 22:59 06:59 14:59 Intake Total 1400 Output Total 25 40 Balance 1375 -40 Intake: IV 1400 Output: Drainage 40 Left Nare 40 Estimated Blood Loss 25 Other: # Voids 1 1 Weight 72.575 kg 72.575 kg Results 02/19/25 16:25 02/20/25 03:52 Cardiac Enzymes 02/19/25 02/19/25 02/20/25 Range/Units 16:25 16: 03:52 AST 53 H 30 (14-36) U/L Troponin I <0.012 (0.000-0.034) ng/mL Coagulation 02/19/25 Range/Units 16:25 PT 17.4 H (10.0-12.5) sec APTT 27.2 (22.0-30.0) sec CBC 02/19/25 Range/Units 16:25 WBC 14.01 H (4.50-10.00) 10*3/uL RBC 4.65 (4.10-5.20) 10*6/uL Hgb 13.7 (12.0-15.0) g/dL Hct 38.6 (37.2-46.3) % Plt Count 262 (140-440) 10*3/uL Comprehensive Metabolic Panel 02/19/25 02/20/25 Range/Units 16:25 03:52 Sodium 141 141 (137-145) mmol/L Potassium 3.3 L 3.4 L (3.5-5.1) mmol/L Chloride 103 107 (98-107) mmol/L Carbon Dioxide 25 23.5 (22-30) mmol/L BUN 11 14.6 (7-17) mg/dL Creatinine 0.44 L 0.5 L (0.52-1.04) mg/dL Glucose 115 H 96 (74-99) mg/dL Calcium 8.9 8.1 L (8.4-10.2) mg/dL AST 53 H 30 (14-36) U/L ALT 79 H 57 H (4-34) U/L Alkaline Phosphatase 73 74 (38-126) U/L Total Protein 6.8 5.1 L (6.3-8.2) g/dL Albumin 3.9 3.0 L (3.5-5.0) g/dL Current Medications Generic Name Dose Route Start Last Admin Trade Name Freq PRN Reason Stop Dose Admin Benzocaine 1 each 02/20/25 07:46 02/20/25 08:06 Benzocaine [place] 1 Each MUCOUS MEM 1 each QID PRN Administration Mouth Irritation Heparin Sodium (Porcine) 5,000 unit 02/20/25 00:00 02/20/25 08:05 Heparin Sodium,Porcine 5,000 Unit/Ml 1 Ml Vial SQ 5,000 unit Q8HR BREANNA Administration Hydromorphone HCl 1 mg 02/19/25 16:46 Hydromorphone 1 Mg/Ml 1 Ml Syringe IVP Q3HR PRN Severe Pain (Scale 7 to 10) Hydromorphone HCl 0.5 mg 02/19/25 18:39 02/20/25 02:31 Hydromorphone 0.5 Mg/0.5 Ml Syringe IVP 0.5 mg Q3HR PRN Administration Moderate Pain (Scale 4 to 6) Piperacillin Sod/Tazobactam 100 mls @ 25 mls/hr 02/19/25 16:15 02/20/25 08:05 Sod 3.375 gm/ Sodium Chloride IVPB 25 mls/hr Q8HR BREANNA Administration Protocol Potassium Chloride/Dextrose/Sod Cl 1,000 mls @ 125 mls/hr 02/19/25 19:00 02/20/25 04:36 D5%-1/2ns-Kcl 20 Meq/L Iv Solution IV Not Given .Q8H BREANNA Metoclopramide HCl 10 mg 02/19/25 18:39 Metoclopramide 5 Mg/Ml 2 Ml Vial IVP Q6H PRN Nausea And Vomiting Naloxone HCl 0.2 mg 02/19/25 16:46 Naloxone 0.4 Mg/Ml 1 Ml Vial IV Q2M PRN Opioid Reversal Ondansetron HCl 4 mg 02/19/25 18:39 02/20/25 00:32 Ondansetron 4 Mg/2 Ml Vial IVP 4 mg Q6HR PRN Administration Nausea And Vomiting Pantoprazole Sodium 40 mg 02/19/25 21:00 02/20/25 08:05 Pantoprazole 40 Mg/10 Ml Vial IV 40 mg BID BREANNA Administration Intake and Output 02/19/25 02/20/25 02/20/25 22:59 06:59 14:59 Intake Total 1400 Output Total 25 40 Balance 1375 -40 Intake: IV 1400 Output: Drainage 40 Left Nare 40 Estimated Blood Loss 25 Other: # Voids 1 1 Weight 72.575 kg 72.575 kg 02/19/25 16:25 02/20/25 03:52
[2025-02-20 11:28] LABS: Basophils # (A) 0.04 X 10*3/uL (0.00-0.10); Basophils % (A) 0.3 %; Eosinophils # (A) 0.03 X 10*3/uL (0.04-0.35); Eosinophils % (A) 0.3 %; HCT 32.6 % (37.2-46.3); HGB 11.3 g/dL (12.0-15.0); Immature Grans, Automated 0.40 %; Lymphocytes # (A) 0.57 X 10*3/uL (0.90-5.00); Lymphocytes % (A) 4.8 %; MCH 29.8 pg (27.0-32.0); MCHC 34.7 g/dL (32.0-37.0); MCV 86.0 FL (80.0-97.0); Monocytes # (A) 0.86 X 10*3/uL (0.20-1.00); Monocytes % (A) 7.2 %; NRBC Per 100 WBC 0 X 10*3/uL (0.00-0.01); Neutrophils # (A) 10.42 X 10*3/uL (1.80-7.70); Neutrophils % (A) 87.0 %; Platelet Count 220 X 10*3/uL (140-440); RBC 3.79 X 10*6/uL (4.10-5.20); RDW 13.1 % (11.5-14.5); WBC 11.97 X 10*3/uL (4.50-10.00)
[2025-02-20] MEDS: FLUCONAZOLE IN NACL,ISO-OSM 200 MG in SALINE 1 100ML.BAG IVPB SCH (11:52)
--- NOTE | 2025-02-20 17:01 | P.PN ---
Subjective Progress Note Date: 02/20/25 Principal diagnosis: Perforated gastric ulcer Patient doing relatively well this morning. Says her pain was noticeably last immediately postop yesterday evening. Even better today. Only had about 50 cc out overnight from the nasogastric tube. Patient having significant nausea and even dry heaves from the tube gagging her in the back of the throat. The dry heaves are causing her to have increased abdominal discomfort when it occurs. White blood cell count improved. Her color looks much better today. Objective - Vital Signs Vital signs: Vital Signs Temp 99.0 F 02/20/25 14:00 Pulse 66 02/20/25 14:00 Resp 16 02/20/25 14:00 BP 119/81 02/20/25 14:00 Pulse Ox 100 02/20/25 14:00 FiO2 Intake & Output 02/19/25 02/20/25 02/20/25 18:59 06:59 18:59 Intake Total 1400 Output Total 25 40 Balance 1375 -40 Weight 72.575 kg 72.575 kg Intake: IV 1400 Output: Drainage 40 Left Nare 40 Estimated Blood Loss 25 Other: # Voids 1 1 - Exam Abdomen: Soft, mild tenderness, dressing clean and dry - Labs CBC & Chem 7: 02/20/25 03:52 02/20/25 03:52 Labs: Abnormal Lab Results - Last 24 Hours (Table) 02/19/25 02/19/25 02/20/25 Range/Units 16:25 16:25 03:52 WBC 14.01 H 11.97 H (4.50-10.00) 10*3/uL RBC 3.79 L (4.10-5.20) X 10*6/uL Hgb 11.3 L (12.0-15.0) g/dL Hct 32.6 L (37.2-46.3) % Immature Gran # 0.05 H (0.00-0.04) X 10*3/uL Neutrophils # 10.42 H (1.80-7.70) X 10*3/uL Neutrophils # (Manual) 12.32 H (1.3-7.7) k/uL Lymphocytes # 0.57 L (0.90-5.00) X 10*3/uL Lymphocytes # (Manual) 0.84 L (1.0-4.8) k/uL Eosinophils # 0.03 L (0.04-0.35) X 10*3/uL PT 17.4 H (10.0-12.5) sec INR 1.7 H (<1.2) Potassium (3.5-5.5) mmol/L Creatinine (0.6-1.5) mg/dL BUN/Creatinine Ratio (12.00-20.00) Ratio Calcium (8.7-10.3) mg/dL ALT (8-44) U/L Total Protein (6.2-8.2) g/dL Albumin (3.8-4.9) g/dL Albumin/Globulin Ratio (1.60-3.17) Ratio /06/07 Range/Units 03:52 WBC (4.50-10.00) 10*3/uL RBC (4.10-5.20) X 10*6/uL Hgb (12.0-15.0) g/dL Hct (37.2-46.3) % Immature Gran # (0.00-0.04) X 10*3/uL Neutrophils # (1.80-7.70) X 10*3/uL Neutrophils # (Manual) (1.3-7.7) k/uL Lymphocytes # (0.90-5.00) X 10*3/uL Lymphocytes # (Manual) (1.0-4.8) k/uL Eosinophils # (0.04-0.35) X 10*3/uL PT (10.0-12.5) sec INR (<1.2) Potassium 3.4 L (3.5-5.5) mmol/L Creatinine 0.5 L (0.6-1.5) mg/dL BUN/Creatinine Ratio 29.20 H (12.00-20.00) Ratio Calcium 8.1 L (8.7-10.3) mg/dL ALT 57 H (8-44) U/L Total Protein 5.1 L (6.2-8.2) g/dL Albumin 3.0 L (3.8-4.9) g/dL Albumin/Globulin Ratio 1.43 L (1.60-3.17) Ratio Assessment and Plan (1) Bowel perforation Narrative/Plan: Patient doing relatively well. The nasogastric tube is really not putting out much fluid. Will remove. Keep n.p.o. except for small-volume ice chips. Repeat labs tomorrow. Continue antibiotics. Current Visit: Yes Status: Acute Code(s): K63.1 - PERFORATION OF INTESTINE (NONTRAUMATIC) SNOMED Code(s): 67487458
--- NOTE | 2025-02-20 18:02 | P.CONS ---
History of Present Illness - Reason for Consult Consult date: 02/20/25 Perforated gastric ulcer Requesting physician: Franck Rosado - Chief Complaint Abdominal pain x few days - History of Present Illness Patient is a 29-year-old female who presented with intermittent epigastric abdominal pain for the last few years, which can last for a few days at a time. She states last Monday she began experiencing upper abdominal pain which was persistent and increasingly progressive. She went to the ER on Monday and Limited workup did not reveal any abnormalities and she was sent home with analgesics and antiemetics. Her symptoms persisted and she returned to the ER on Monday. CT scan was then performed showing some thickening of the gastric wall and gastritis was suspected. She admits to having some dark-colored stools at the time and denied hematemesis. She also had some vomiting and was subsequently discharged home. Patient says since then the pain became progressively more severe to the point that she could not sleep and had worsening weakness. She was taken back to the hospital underwent repeat lab work and CT scan showing large volume pneumoperitoneum. Some possible fistulous communication to the gastric antrum was suspected. She was transferred here for surgical intervention. White blood cell count 13, hemoglobin 13, lactic acid normal. No history of previous EGD. Today on today's evaluation 02/20/2025, she is status post exploratory laparotomy and suture repair of perforated gastric ulcer with modified Bradley patch. He was found to have peritonitis secondary to perforated gastric ulcer. Patient continues to have generalized abdominal pain which has improved, no nausea or vomiting since yesterday. She continues to be afebrile on room air. She is currently NPO. Today's labs pending WBC 11.97, creatinine 0.5. Review of Systems Positive point and negatives has been mentioned in the HPI, complete review of systems was performed and all other systems are negative Past Medical History Past Medical History: GERD/Reflux Additional Past Medical History / Comment(s): chronic back pain and "period issues" History of Any Multi-Drug Resistant Organisms: None Reported Past Surgical History: Section, Cholecystectomy Past Anesthesia/Blood Transfusion Reactions: No Reported Reaction Past Psychological History: Anxiety, Depression Smoking Status: Vaper Past Alcohol Use History: Rare Additional Past Alcohol Use History / Comment(s): SMOKES < 1/2 PPD SINCE 2010 Past Drug Use History: Marijuana - Past Family History Mother History Unknown: Yes Additional Family Medical History / Comment(s): PT ADOPTED BIOLOGICAL FAMILY HHX UNKNOWN Medications and Allergies Home Medications Medication Instructions Recorded Confirmed Type Ibuprofen [Motrin] 600 mg PO Q6HR PRN #20 tab 09/18/17 02/19/25 Rx Amitriptyline HCl [Elavil] 50 mg PO HS 02/19/25 02/19/25 History Cetirizine HCl 10 mg PO DAILY 02/19/25 02/19/25 History Dextroamphetamine/Amphetamine 15 mg PO DAILY 02/19/25 02/19/25 History [Adderall Xr 15 mg Capsule] Meloxicam [Mobic] 15 mg PO DAILY 02/19/25 02/19/25 History Metoclopramide [Reglan] 10 mg PO TID-W/MEALS PRN 02/19/25 02/19/25 History Ondansetron Odt [Zofran Odt] 4 mg PO Q8HR PRN 02/19/25 02/19/25 History Pantoprazole Sodium [Protonix] 20 mg PO DAILY 02/19/25 02/19/25 History hydrOXYzine HCL [Atarax] 25 mg PO BID PRN 02/19/25 02/19/25 History Allergies Allergy/AdvReac Type Severity Reaction Status Date / Time No Known Allergies Allergy Verified 02/19/25 16:03 Physical Exam Vitals: Vital Signs Temp Pulse Pulse Pulse Pulse Resp BP 02/20/25 07:20 98.7 F 59 L 17 02/20/25 01:44 98.5 F 98 18 02/19/25 21:45 69 02/19/25 21:30 87 02/19/25 21:15 83 02/19/25 21:00 68 02/19/25 20:45 74 02/19/25 20:30 77 02/19/25 20:15 75 02/19/25 19:42 61 14 02/19/25 19:30 77 14 02/19/25 19:15 70 14 02/19/25 19:00 73 14 02/19/25 18:45 88 14 02/19/25 18:30 74 12 02/19/25 18:25 97.0 F L 93 14 02/19/25 16:43 96.5 F L 78 16 02/19/25 16:37 68 16 109/68 02/19/25 15:22 97.8 F 76 16 117/65 BP Pulse Ox 02/20/25 07:20 101/63 98 02/20/25 01:44 128/90 100 02/19/25 21:45 102/68 97 02/19/25 21:30 106/70 99 02/19/25 21:15 109/74 98 02/19/25 21:00 98/62 98 02/19/25 20:45 104/70 98 02/19/25 20:30 101/68 98 02/19/25 20:15 108/69 98 02/19/25 19:42 104/63 98 02/19/25 19:30 107/66 97 02/19/25 19:15 108/67 99 02/19/25 19:00 109/69 98 02/19/25 18:45 108/67 98 02/19/25 18:30 129/86 97 02/19/25 18:25 109/69 100 02/19/25 16:43 110/64 99 02/19/25 16:37 99 02/19/25 15:22 100 Intake and Output 02/19/25 02/20/25 02/20/25 22:59 06:59 14:59 Intake Total 1400 Output Total 25 40 Balance 1375 -40 Intake: IV 1400 Output: Drainage 40 Left Nare 40 Estimated Blood Loss 25 Other: # Voids 1 1 Weight 72.575 kg 72.575 kg GENERAL DESCRIPTION: Young female lying in bed, tearful. No tachypnea or accessory muscle of respiration use. HEENT: No Pallor , no scleral icterus. Oral mucous membrane is moist NECK: Trachea central, no thyromegaly. LUNGS: Unlabored breathing. Clear to auscultation anteriorly. No wheeze or crackle. HEART: S1, S2, regular rate and rhythm. No loud murmur ABDOMEN: Soft, mild generalized tenderness , no guarding or rigidity, no organomegaly EXTREMITIES: No pedal edema noted SKIN: No rash, no masses palpable. NEUROLOGICAL: The patient is awake, alert, oriented Results CBC & Chem 7: 02/20/25 03:52 02/20/25 03:52 Labs: Abnormal Lab Results - Last 24 Hours (Table) 02/19/25 02/19/25 02/19/25 Range/Units 16:25 16:25 16:25 WBC 14.01 H (4.50-10.00) 10*3/uL Neutrophils # (Manual) 12.32 H (1.3-7.7) k/uL Lymphocytes # (Manual) 0.84 L (1.0-4.8) k/uL PT 17.4 H (10.0-12.5) sec INR 1.7 H (<1.2) Potassium 3.3 L (3.5-5.1) mmol/L Creatinine 0.44 L (0.52-1.04) mg/dL BUN/Creatinine Ratio (12.00-20.00) Ratio Glucose 115 H (74-99) mg/dL Calcium (8.7-10.3) mg/dL Magnesium 1.3 L (1.6-2.3) mg/dL Total Bilirubin 2.5 H (0.2-1.3) mg/dL AST 53 H (14-36) U/L ALT 79 H (4-34) U/L Total Protein (6.2-8.2) g/dL Albumin (3.8-4.9) g/dL Albumin/Globulin Ratio (1.60-3.17) Ratio /06/07 Range/Units 03:52 WBC (4.50-10.00) 10*3/uL Neutrophils # (Manual) (1.3-7.7) k/uL Lymphocytes # (Manual) (1.0-4.8) k/uL PT (10.0-12.5) sec INR (<1.2) Potassium 3.4 L (3.5-5.1) mmol/L Creatinine 0.5 L (0.52-1.04) mg/dL BUN/Creatinine Ratio 29.20 H (12.00-20.00) Ratio Glucose (74-99) mg/dL Calcium 8.1 L (8.7-10.3) mg/dL Magnesium (1.6-2.3) mg/dL Total Bilirubin (0.2-1.3) mg/dL AST (14-36) U/L ALT 57 H (4-34) U/L Total Protein 5.1 L (6.2-8.2) g/dL Albumin 3.0 L (3.8-4.9) g/dL Albumin/Globulin Ratio 1.43 L (1.60-3.17) Ratio Assessment and Plan (1) Peritonitis Current Visit: Yes Status: Acute Code(s): K65.9 - PERITONITIS, UNSPECIFIED SNOMED Code(s): 51188975 (2) Bowel perforation Current Visit: Yes Status: Acute Code(s): K63.1 - PERFORATION OF INTESTINE (NONTRAUMATIC) SNOMED Code(s): 14326525 Plan: 1. Patient presented with increased abdominal pain and was found to have CT scan of her abdomen showing a large volume pneumoperitoneum, with possible fistulous communication to the gastric antrum suspected. She was subsequently taken for exploratory laparotomy and was found to have perforated gastric ulcer with peritonitis. She was started on empiric Zosyn. She has been afebrile since admission. Initial WBC was elevated. 2. Patient with peritonitis we will continue on Zosyn and Diflucan empirically, monitor for clinical improvement. No cultures taken operatively. Brayan Richardson MD Internal Medicine Resident, PGY2 Infectious disease service Patient was personally seen and examined care discussed in detail with the resident physician documentation reviewed and agree, patient was personally seen and examined, patient presented to hospital abdominal pain has been diagnosed with the peritonitis status post laparotomy and repair of the perforated gastric ulcer the likely organism need to correlate with enteric gram-negative plus minus yeast, patient was started on Zosyn and Diflucan has been added empirically and will see clinical response Multiple question concern answered mary dupree MD We will follow on clinical condition and cultures to further adjust medication if needed Thank you for this consultation we will follow the patient along with you. Dictation was produced using [employer] software. please excuse any grammatical, word or spelling errors. Time with Patient: Less than 30
[2025-02-21 08:53] LABS: HCT 31.4 % (37.2-46.3); HGB 10.6 g/dL (12.0-15.0); MCH 29.4 pg (27.0-32.0); MCHC 33.8 g/dL (32.0-37.0); MCV 87.0 FL (80.0-97.0); NRBC Per 100 WBC 0 X 10*3/uL (0.00-0.01); Platelet Count 206 X 10*3/uL (140-440); RBC 3.61 X 10*6/uL (4.10-5.20); RDW 13.1 % (11.5-14.5); WBC 8.73 X 10*3/uL (4.50-10.00)
[2025-02-21 09:19] LABS: Anion Gap 8.60 mmol/L (4.00-12.00); BUN/Creat Ratio 29.80 Ratio (12.00-20.00); Blood Urea Nitrogen 14.9 mg/dL (9.0-27.0); Calcium 8.1 mg/dL (8.7-10.3); Carbon Dioxide 26.4 mmol/L (21.6-31.8); Chloride 105 mmol/L (96-109); Glucose 79 mg/dL (70-110); Potassium 3.7 mmol/L (3.5-5.5); Sodium 140 mmol/L (135-145)
[2025-02-21 10:15] LABS: Basophils # (A) 0.03 X 10*3/uL (0.00-0.10); Basophils % (A) 0.3 %; Crenated RBC 2+ (None Seen); Eosinophils # (A) 0.12 X 10*3/uL (0.04-0.35); Eosinophils % (A) 1.4 %; Immature Grans, Automated 1.00 %; Lymphocytes # (A) 1.50 X 10*3/uL (0.90-5.00); Lymphocytes % (A) 17.2 %; Monocytes # (A) 0.66 X 10*3/uL (0.20-1.00); Monocytes % (A) 7.6 %; Neutrophils # (A) 6.33 X 10*3/uL (1.80-7.70); Neutrophils % (A) 72.5 %
--- NOTE | 2025-02-21 13:10 | P.PN ---
Subjective Progress Note Date: 02/21/25 Principal diagnosis: Perforated gastric ulcer Patient sitting up in the chair. Says her pain continues to improve. No nausea or vomiting. Tolerating ice chips. White blood cell count normal. She is afebrile. Objective - Vital Signs Vital signs: Vital Signs Temp 98.8 F 02/21/25 07:02 Pulse 71 02/21/25 07:02 Resp 17 02/21/25 07:02 BP 104/66 02/21/25 07:02 Pulse Ox 99 02/21/25 07:02 FiO2 Intake & Output 02/20/25 02/21/25 02/21/25 18:59 06:59 18:59 Other: Voiding Method Toilet # Voids 4 2 - Exam Abdomen: Soft, nondistended, mild tenderness, dressing clean and dry - Labs CBC & Chem 7: 02/21/25 03:07 02/21/25 03:07 Labs: Abnormal Lab Results - Last 24 Hours (Table) 02/21/25 02/21/25 Range/Units 03:07 03:07 RBC 3.61 L (4.10-5.20) X 10*6/uL Hgb 10.6 L (12.0-15.0) g/dL Hct 31.4 L (37.2-46.3) % Immature Gran # 0.09 H (0.00-0.04) X 10*3/uL Crenated Cell 2+ A (None Seen) Creatinine 0.5 L (0.6-1.5) mg/dL BUN/Creatinine Ratio 29.80 H (12.00-20.00) Ratio Calcium 8.1 L (8.7-10.3) mg/dL Assessment and Plan (1) Bowel perforation Narrative/Plan: Patient continues to improve. Continue antibiotics. May have popsicles and sips. Ambulate. Continue antiacid therapy. Current Visit: Yes Status: Acute Code(s): K63.1 - PERFORATION OF INTESTINE (NONTRAUMATIC) SNOMED Code(s): 55795108
--- NOTE | 2025-02-21 15:52 | P.PN ---
Subjective Progress Note Date: 02/21/25 Principal diagnosis: Reason for follow-up is perforated gastric ulcer/peritonitis Patient is a 29 female presented to hospital with abdominal pain and has been diagnosed with a perforated gastric ulcer with peritonitis status post laparotomy modified Bradley patch repair of the perforated gastric ulcer. On today's evaluation that is 02/21/2025, the patient continues to be afebrile, the patient is on room air and breathing comfortably, the Pt denies having any chest pain or cough, the patient did have improvement her abdominal pain no nausea no vomiting. Patient white count normalized to 8.73, creatinine 0.5 Objective - Vital Signs Vital signs: Vital Signs Temp 98.8 F 02/21/25 07:02 Pulse 71 02/21/25 07:02 Resp 17 02/21/25 07:02 BP 104/66 02/21/25 07:02 Pulse Ox 99 02/21/25 07:02 FiO2 Intake & Output 02/20/25 02/21/25 02/21/25 18:59 06:59 18:59 Other: Voiding Method Toilet # Voids 4 2 - Exam GENERAL DESCRIPTION: Middle-age female lying in bed in no distress RESPIRATORY SYSTEM: Unlabored breathing , decreased breath sounds at bases HEART: S1 S2 regular rate and rhythm , ABDOMEN: Soft , no tenderness EXTREMITIES: No edema feet - Labs CBC & Chem 7: 02/21/25 03:07 02/21/25 03:07 Labs: Abnormal Lab Results - Last 24 Hours (Table) 02/21/25 02/21/25 Range/Units 03:07 03:07 RBC 3.61 L (4.10-5.20) X 10*6/uL Hgb 10.6 L (12.0-15.0) g/dL Hct 31.4 L (37.2-46.3) % Immature Gran # 0.09 H (0.00-0.04) X 10*3/uL Crenated Cell 2+ A (None Seen) Creatinine 0.5 L (0.6-1.5) mg/dL BUN/Creatinine Ratio 29.80 H (12.00-20.00) Ratio Calcium 8.1 L (8.7-10.3) mg/dL Assessment and Plan (1) Peritonitis Current Visit: Yes Status: Acute Code(s): K65.9 - PERITONITIS, UNSPECIFIED SNOMED Code(s): 83950914 (2) Bowel perforation Current Visit: Yes Status: Acute Code(s): K63.1 - PERFORATION OF INTESTINE (NONTRAUMATIC) SNOMED Code(s): 67228895 Plan: 1. Patient presented with increased abdominal pain and was found to have CT scan of her abdomen showing a large volume pneumoperitoneum, with possible fistulous communication to the gastric antrum suspected. She was subsequently taken for exploratory laparotomy and was found to have perforated gastric ulcer with peritonitis. 2patient is afebrile the patient white count has normalized we will keep the patient on Zosyn and Diflucan and monitor clinical course closely Dictation was produced using [employer] dictation software. please excuse any grammatical, word or spelling errors. Time with Patient: Less than 30
[2025-02-21] MEDS: HYDROmorphone 1 MG/ML 1 ML SYRINGE IVP PRN (22:05)
[2025-02-22] MEDS: METOCLOPRAMIDE 5 MG/ML 2 ML VIAL IVP PRN (10:21)
--- NOTE | 2025-02-22 12:35 | P.PN ---
Subjective Progress Note Date: 02/22/25 Principal diagnosis: Perforated gastric ulcer Patient doing well today. Had a little bit of nausea this morning but thinks it was related to the taste of the orange popsicle. Denies any significant pain. She is afebrile. Vitals are stable. Sitting up in the chair. She has been ambulating some. Objective - Vital Signs Vital signs: Vital Signs Temp 98.5 F 02/22/25 08:00 Pulse 80 02/22/25 08:00 Resp 18 02/22/25 08:00 BP 94/58 02/22/25 08:00 Pulse Ox 100 02/22/25 08:00 FiO2 Intake & Output 02/21/25 02/22/25 02/22/25 18:59 06:59 18:59 Intake Total 1280 Balance 1280 Intake: Oral 1280 Other: # Voids 3 4 - Exam Abdomen: Soft, mild tenderness along incision, no rebound or guarding - Labs CBC & Chem 7: 02/21/25 03:07 02/21/25 03:07 Assessment and Plan (1) Bowel perforation Narrative/Plan: Patient doing well at this time. Advance to clear liquids no carbonation. Ambulate. Continue antiacids and antibiotics. Check labs tomorrow. Current Visit: Yes Status: Acute Code(s): K63.1 - PERFORATION OF INTESTINE (NONTRAUMATIC) SNOMED Code(s): 69277048
--- NOTE | 2025-02-22 16:01 | P.PN ---
Subjective Progress Note Date: 02/22/25 Principal diagnosis: Reason for follow-up is perforated gastric ulcer/peritonitis Patient is a 29 female presented to hospital with abdominal pain and has been diagnosed with a perforated gastric ulcer with peritonitis status post laparotomy modified Bradley patch repair of the perforated gastric ulcer. On today's evaluation that is 02/23/2024, patient did have a temperature of 98 F this morning and denies having any chills, patient is on room air and breathing comfortably no chest pain or cough, the patient did have improvement her abdominal pain no nausea vomiting passing gas but did not have any bowel movement. Patient white count is 8.73 as of yesterday no CBC was done today Objective - Vital Signs Vital signs: Vital Signs Temp 98.0 F 02/22/25 14:00 Pulse 80 02/22/25 14:00 Resp 18 02/22/25 14:00 BP 102/65 02/22/25 14:00 Pulse Ox 99 02/22/25 14:00 FiO2 Intake & Output 02/21/25 02/22/25 02/22/25 18:59 06:59 18:59 Intake Total 1280 Balance 1280 Intake: Oral 1280 Other: # Voids 3 4 - Exam GENERAL DESCRIPTION: Middle-age female lying in bed in no distress RESPIRATORY SYSTEM: Unlabored breathing , decreased breath sounds at bases HEART: S1 S2 regular rate and rhythm , ABDOMEN: Soft , no tenderness EXTREMITIES: No edema feet - Labs CBC & Chem 7: 02/21/25 03:07 02/21/25 03:07 Assessment and Plan (1) Peritonitis Current Visit: Yes Status: Acute Code(s): K65.9 - PERITONITIS, UNSPECIFIED SNOMED Code(s): 24328494 (2) Bowel perforation Current Visit: Yes Status: Acute Code(s): K63.1 - PERFORATION OF INTESTINE (NONTRAUMATIC) SNOMED Code(s): 94544326 Plan: 1. Patient presented with increased abdominal pain and was found to have CT scan of her abdomen showing a large volume pneumoperitoneum, with possible fistulous communication to the gastric antrum suspected. She was subsequently taken for exploratory laparotomy and was found to have perforated gastric ulcer with peritonitis. 2patient is afebrile the patient white count has normalized 3we will keep the patient on Zosyn and Diflucan while inpatient and transition to oral antibiotic on discharge Dictation was produced using [employer] dictation software. please excuse any grammatical, word or spelling errors. Time with Patient: Less than 30
[2025-02-23 09:09] LABS: Anion Gap 8.70 mmol/L (4.00-12.00); BUN/Creat Ratio 7.00 Ratio (12.00-20.00); Blood Urea Nitrogen 3.5 mg/dL (9.0-27.0); Calcium 7.6 mg/dL (8.7-10.3); Carbon Dioxide 24.3 mmol/L (21.6-31.8); Chloride 104 mmol/L (96-109); Glucose 107 mg/dL (70-110); Potassium 3.1 mmol/L (3.5-5.5); Sodium 137 mmol/L (135-145)
[2025-02-23 09:27] LABS: Basophils # (A) 0.03 X 10*3/uL (0.00-0.10); Basophils % (A) 0.3 %; Eosinophils # (A) 0.11 X 10*3/uL (0.04-0.35); Eosinophils % (A) 1.2 %; HCT 27.2 % (37.2-46.3); HGB 9.2 g/dL (12.0-15.0); Immature Grans, Automated 0.70 %; Lymphocytes # (A) 1.27 X 10*3/uL (0.90-5.00); Lymphocytes % (A) 14.3 %; MCH 29.0 pg (27.0-32.0); MCHC 33.8 g/dL (32.0-37.0); MCV 85.8 FL (80.0-97.0); Monocytes # (A) 1.34 X 10*3/uL (0.20-1.00); Monocytes % (A) 15.1 %; NRBC Per 100 WBC 0 X 10*3/uL (0.00-0.01); Neutrophils # (A) 6.08 X 10*3/uL (1.80-7.70); Neutrophils % (A) 68.4 %; Platelet Count 208 X 10*3/uL (140-440); RBC 3.17 X 10*6/uL (4.10-5.20); RDW 13.0 % (11.5-14.5); WBC 8.89 X 10*3/uL (4.50-10.00)
[2025-02-23] MEDS: POTASSIUM CHLORIDE ER 20 MEQ TAB.ER PO SCH (10:04)
--- NOTE | 2025-02-23 10:17 | P.PN ---
Subjective Progress Note Date: 02/23/25 Principal diagnosis: Perforated gastric ulcer Patient doing well today. Tolerating clear liquids. No nausea or vomiting. Ambulating. Pain is less. White blood cell count normal. She is afebrile. Objective - Vital Signs Vital signs: Vital Signs Temp 98.2 F 02/23/25 07:42 Pulse 79 02/23/25 07:42 Resp 18 02/23/25 07:42 BP 109/67 02/23/25 07:42 Pulse Ox 98 02/23/25 07:42 FiO2 Intake & Output 02/22/25 02/23/25 02/23/25 18:59 06:59 18:59 Intake Total 1080 Balance 1080 Intake: Oral 1080 Other: # Voids 6 5 # Bowel Movements 1 - Exam Abdomen: Soft, mild epigastric tenderness, no rebound or guarding, incision dressing clean and dry - Labs CBC & Chem 7: 02/23/25 03:07 02/23/25 03:07 Labs: Abnormal Lab Results - Last 24 Hours (Table) 02/23/25 02/23/25 Range/Units 03:07 03:07 RBC 3.17 L (4.10-5.20) X 10*6/uL Hgb 9.2 L (12.0-15.0) g/dL Hct 27.2 L (37.2-46.3) % Immature Gran # 0.06 H (0.00-0.04) X 10*3/uL Monocytes # 1.34 H (0.20-1.00) X 10*3/uL Potassium 3.1 L (3.5-5.5) mmol/L BUN 3.5 L (9.0-27.0) mg/dL Creatinine 0.5 L (0.6-1.5) mg/dL BUN/Creatinine Ratio 7.00 L (12.00-20.00) Ratio Calcium 7.6 L (8.7-10.3) mg/dL Assessment and Plan (1) Bowel perforation Narrative/Plan: Patient doing fairly well today. Advance to full liquid diet. Ambulate. Continue antiacids. Possible discharge tomorrow. Current Visit: Yes Status: Acute Code(s): K63.1 - PERFORATION OF INTESTINE (NONTRAUMATIC) SNOMED Code(s): 53599652
--- NOTE | 2025-02-23 15:35 | P.PN ---
Subjective Progress Note Date: 02/23/25 Principal diagnosis: Reason for follow-up is perforated gastric ulcer/peritonitis Patient is a 29 female presented to hospital with abdominal pain and has been diagnosed with a perforated gastric ulcer with peritonitis status post laparotomy modified Bradley patch repair of the perforated gastric ulcer. On today's evaluation that is 02/23/2025, Patient is afebrile patient is currently on room air and denies having any shortness of breath, the patient denies any chest pain or cough, the patient denies any nausea vomiting did have improvement normal pain tolerating her diet and did have a bowel movement. The patient white count is down to 8.89, creatinine 0.5 Objective - Vital Signs Vital signs: Vital Signs Temp 98.6 F 02/23/25 14:00 Pulse 89 02/23/25 14:00 Resp 18 02/23/25 14:00 BP 98/62 02/23/25 14:00 Pulse Ox 99 02/23/25 14:00 FiO2 Intake & Output 02/22/25 02/23/25 02/23/25 18:59 06:59 18:59 Intake Total 1080 Balance 1080 Intake: Oral 1080 Other: # Voids 6 5 # Bowel Movements 1 - Exam GENERAL DESCRIPTION: Middle-age female lying in bed in no distress RESPIRATORY SYSTEM: Unlabored breathing , decreased breath sounds at bases HEART: S1 S2 regular rate and rhythm , ABDOMEN: Soft , no tenderness EXTREMITIES: No edema feet - Labs CBC & Chem 7: 02/23/25 03:07 02/23/25 03:07 Labs: Abnormal Lab Results - Last 24 Hours (Table) 02/23/25 02/23/25 Range/Units 03:07 03:07 RBC 3.17 L (4.10-5.20) X 10*6/uL Hgb 9.2 L (12.0-15.0) g/dL Hct 27.2 L (37.2-46.3) % Immature Gran # 0.06 H (0.00-0.04) X 10*3/uL Monocytes # 1.34 H (0.20-1.00) X 10*3/uL Potassium 3.1 L (3.5-5.5) mmol/L BUN 3.5 L (9.0-27.0) mg/dL Creatinine 0.5 L (0.6-1.5) mg/dL BUN/Creatinine Ratio 7.00 L (12.00-20.00) Ratio Calcium 7.6 L (8.7-10.3) mg/dL Assessment and Plan (1) Peritonitis Current Visit: Yes Status: Acute Code(s): K65.9 - PERITONITIS, UNSPECIFIED SNOMED Code(s): 39481325 (2) Bowel perforation Current Visit: Yes Status: Acute Code(s): K63.1 - PERFORATION OF INTESTINE (NONTRAUMATIC) SNOMED Code(s): 25777097 Plan: 1. Patient presented with increased abdominal pain and was found to have CT scan of her abdomen showing a large volume pneumoperitoneum, with possible fis tulous communication to the gastric antrum suspected. She was subsequently taken for exploratory laparotomy and was found to have perforated gastric ulcer with peritonitis. 2patient is afebrile the patient white count has normalized 3patient will be treated with Zosyn while inpatient transition to oral Augmentin on discharge and close outpatient follow-up Dictation was produced using [employer] dictation software. please excuse any grammatical, word or spelling errors. Time with Patient: Less than 30
[2025-02-23 20:42] VITALS: RESP 16
[2025-02-24] MEDS ORDERED: HYDROcodone/APAP 5-325MG 1 EACH TAB PO PRN (11:36)
--- NOTE | 2025-02-24 13:27 | P.DS ---
Providers Date of admission: 02/19/25 16:47 Expected date of discharge: 02/24/25 Attending physician: Franck Rosado Consults: 02/19/25 18:39 Consult Physician Routine Consulting Provider: Joshua Bird Consult Reason/Comments: Perforated gastric ulcer Do you want consulting provider notified?: Yes 02/20/25 06:21 Consult Physician Routine Consulting Provider: Efe Ceja Consult Reason/Comments: abnormal telemetry Do you want consulting provider notified?: Yes, Notify in am Primary care physician: Lulu Charles MD Hospital Course: Discharge diagnosis 1. Perforated gastric ulcer Hospital course This is a 29-year-old female who presented to the hospital with upper epigastric abdominal pain. Patient had a CT scan abdomen that had reported large volume pneumoperitoneum and required transfer to [facility] for surgical eval. She is status post exploratory laparotomy, suture repair of perforated gastric ulcer with modified Bradley patch. Patient tolerated surgery well. Her pain is controlled. She is tolerating full liquid diet. She is having bowel movements. She is afebrile. She has been up and ambulating. She denies any difficulty urinating. She is stable for discharge. Please refer to chart for any further details. Physician Website Programmer note has been reviewed by physician. Signing provider agrees with the documented findings, assessment, and plan of care. Patient Condition at Discharge: Stable Plan - Discharge Summary Discharge Rx Participant: No New Discharge Prescriptions: New HYDROcodone/APAP 5-325MG [Winchester 5-325] 1 tab PO Q6HR PRN 3 Days #12 tab PRN Reason: Pain Pantoprazole Sodium [Protonix] 40 mg PO BID #60 tab Amoxic-Pot Clav 875-125Mg [Augmentin 875-125] 1 tab PO Q12HR 7 Days #14 tab Continue hydrOXYzine HCL [Atarax] 25 mg PO BID PRN PRN Reason: Anxiety Metoclopramide [Reglan] 10 mg PO TID-W/MEALS PRN PRN Reason: Nausea Cetirizine HCl 10 mg PO DAILY Amitriptyline HCl [Elavil] 50 mg PO HS Dextroamphetamine/Amphetamine [Adderall Xr 15 mg Capsule] 15 mg PO DAILY Ondansetron Odt [Zofran ODT] 4 mg PO Q8HR PRN PRN Reason: Nausea Discontinued Ibuprofen [Motrin] 600 mg PO Q6HR PRN #20 tab PRN Reason: Pain Pantoprazole Sodium [Protonix] 20 mg PO DAILY Meloxicam [Mobic] 15 mg PO DAILY Discharge Medication List Amitriptyline HCl [Elavil] 50 mg PO HS 02/19/25 [History] Cetirizine HCl 10 mg PO DAILY 02/19/25 [History] Dextroamphetamine/Amphetamine [Adderall Xr 15 mg Capsule] 15 mg PO DAILY 02/19/25 [History] Metoclopramide [Reglan] 10 mg PO TID-W/MEALS PRN 02/19/25 [History] Ondansetron Odt [Zofran ODT] 4 mg PO Q8HR PRN 02/19/25 [History] hydrOXYzine HCL [Atarax] 25 mg PO BID PRN 02/19/25 [History] Amoxic-Pot Clav 875-125Mg [Augmentin 875-125] 1 tab PO Q12HR 7 Days #14 tab 02/11 12/06 [Rx] HYDROcodone/APAP 5-325MG [[place]inchester 5-325] 1 tab PO Q6HR PRN 3 Days #12 tab 02/24/25 [Rx] Pantoprazole Sodium [Protonix] 40 mg PO BID #60 tab 02/24/25 [Rx] Follow up Appointment(s)/Referral(s): Franck Rosado MD [Medical Doctor] - 02/27/25 Neo Monson MD [STAFF PHYSICIAN] - 4 Weeks Lulu Charles MD [Primary Care Provider] - 1-2 days Activity/Diet/Wound Care/Special Instructions: No driving while taking Winchester No lifting over 10 pounds You may shower. No soaking or tub baths for 2 weeks Very light activity until you are reevaluated at your follow up appointment with your surgeon Continue a full liquid diet/soft food diet until seen by surgeon No carbonated beverages No NSAID medications such as Motrin, ibuprofen or meloxicam
[2025-02-24 14:09] VITALS: BP 106/66; PULSE 74; TEMP 98.2
--- NOTE | 2025-02-27 09:19 | P.PN ---
Subjective Progress Note Date: 02/24/25 Principal diagnosis: Reason for follow-up is perforated gastric ulcer/peritonitis Patient is a 29 female presented to hospital with abdominal pain and has been diagnosed with a perforated gastric ulcer with peritonitis status post laparotomy modified Bradley patch repair of the perforated gastric ulcer. On today's evaluation that is 02/24/2025, patient has been afebrile, patient is breathing comfortably and is currently on room air, patient denies having any chest pain and cough, patient denies nausea vomiting improving abdominal pain and did have a bowel movement. Patient white count normal as of yesterday 8.81, no blood draw today Objective - Vital Signs Vital signs: Vital Signs Temp 98.2 F 02/24/25 07:28 Pulse 74 02/24/25 07:28 Resp 16 02/24/25 07:28 BP 106/66 02/24/25 07:28 Pulse Ox 78 L 02/24/25 07:28 FiO2 Intake & Output 02/23/25 02/24/25 02/24/25 18:59 06:59 18:59 Intake Total 2160 Balance 2160 Intake: Oral 2160 Other: Voiding Method Toilet # Voids 3 5 # Bowel Movements 0 2 - Exam GENERAL DESCRIPTION: Middle-age female lying in bed in no distress RESPIRATORY SYSTEM: Unlabored breathing , decreased breath sounds at bases HEART: S1 S2 regular rate and rhythm , ABDOMEN: Soft , no tenderness EXTREMITIES: No edema feet - Labs CBC & Chem 7: 02/23/25 03:07 02/23/25 03:07 Assessment and Plan (1) Peritonitis Status: Acute Code(s): K65.9 - PERITONITIS, UNSPECIFIED SNOMED Code(s): 42966997 (2) Bowel perforation Status: Acute Code(s): K63.1 - PERFORATION OF INTESTINE (NONTRAUMATIC) SNOMED Code(s): 34100162 Plan: 1. Patient presented with increased abdominal pain and was found to have CT scan of her abdomen showing a large volume pneumoperitoneum, with possible fistulous communication to the gastric antrum suspected. She was subsequently taken for exploratory laparotomy and was found to have perforated gastric ulcer with peritonitis. 2patient is afebrile the patient white count has normalized 3patient-overall clinical improvement he will finish therapy with oral Augmentin on discharge discussed with [facility]ION[facility] for admitting team working on discharge Dictation was produced using dragon dictation software. please excuse any grammatical, word or spelling errors. Time with Patient: Less than 30
== END 2025-02-24 14:58 | disposition home or self-care (01) | DRG 222 ==
LOC: EC 15:17 → 4SSUR 16:47
PROVIDERS: ADMIT Surgery; ATTEND Surgery
PROC: 0DQ70ZZ Repair Stomach, Pylorus, Open Approach (ICD-10-PCS; principal; 2025-02-19 10:50)
DX: K25.5 Chronic or unspecified gastric ulcer with perforation (principal); K65.9 Peritonitis, unspecified; F32.A Depression, unspecified; K29.70 Gastritis, unspecified, without bleeding; K21.9 Gastro-esophageal reflux disease without esophagitis; F41.9 Anxiety disorder, unspecified; G89.29 Other chronic pain; F17.290 Nicotine dependence, other tobacco product, uncomplicated; M54.9 Dorsalgia, unspecified; I44.7 Left bundle-branch block, unspecified; I45.89 Other specified conduction disorders; I49.8 Other specified cardiac arrhythmias; Z79.1 Long term (current) use of non-steroidal anti-inflammatories (NSAID); Z79.899 Other long term (current) drug therapy
CPT/HCPCS: 36415; 80048; 80053; 82140; 83605; 83690; 83735; 84100; 84484; 84703; 85025; 85610; 85730; 86850; 86900; 86901; 96374; 96375; 99291